=== PATIENT | female | born 1985 | race Caucasian/White ===

== ENCOUNTER 2021-03-11 20:56 | Emergency (ER) | payer OTHER ==
[~2021-03-11] VITALS: Ht 162.6 cm; Wt 83.9 kg
[2021-03-11 21:00] VITALS: BP_SYST 136
--- NOTE | 2021-03-11 21:10 | NUR ---
Patient to ER [facility].
--- NOTE | 2021-03-11 21:12 | NUR ---
Patient BIB by family from home. C/O shortness of breath and cough x 3 days. Patient had cough, fever and shortness of breath for 3 days. Patient did test COVID-19 on 03/06/21 (positive). A/O,X4, no acute distress, oxygen sat 98-99 % RA.
--- NOTE | 2021-03-11 21:16 | NUR ---
ER Dr. Aguilar at [facility] examining patient.
[2021-03-11] MEDS ORDERED: PRED20TA PO (22:11)
[2021-03-11] MEDS ORDERED: ALBU8.5H8 INH (22:12)
[2021-03-11 22:50] VITALS: BP_SYST 136
--- NOTE | 2021-03-11 22:50 | NUR ---
Patient given written and verbal discharge instructions and verbalizes understanding. ER MD discussed with patient the results and treatment provided. Patient in stable condition. ID arm band removed. Rx of Proair HFA and Prednisone given. Patient educated on pain management and to follow up with PMD. Pain Scale 0/10. Opportunity for questions provided and answered.
== END 2021-03-11 22:50 | disposition home or self-care (01) ==
LOC: SED 20:56
DX: U07.1 COVID-19 (principal); J40 Bronchitis, not specified as acute or chronic
CPT/HCPCS: 71045; 99283

== ENCOUNTER 2023-02-20 11:22 | Emergency (ER) | payer OTHER ==
[~2023-02-20] VITALS: Ht 162.6 cm; Wt 86.2 kg
[~2023-02-20 11:22] MED LIST: ALBU8.5H8 INH; OMEP20CA15 PO; ONDA-8 TL; PRED20TA PO
[2023-02-20 11:28] VITALS: BP_SYST 160; PULSE 112; RESP 18; TEMP 98.3; O2SAT 98
[2023-02-20] MEDS ORDERED: IBUP-1969 PO (12:36)
[2023-02-20] MEDS ORDERED: HYDR-3927 PO (12:36)
[2023-02-20] MEDS ORDERED: IBUPROFEN 800 MG TABLET PO ONE (12:45)
[2023-02-20 12:48] VITALS: BP_SYST 135; PULSE 84; RESP 17; TEMP 97.3; O2SAT 97
== END 2023-02-20 12:49 | disposition home or self-care (01) ==
LOC: SED 11:22
DX: S13.4XXA Sprain of ligaments of cervical spine, initial encounter (principal); S43.402A Unspecified sprain of left shoulder joint, initial encounter; Z79.899 Other long term (current) drug therapy; W01.0XXA Fall on same level from slipping, tripping and stumbling without subsequent striking against object, initial encounter; Y93.89 Activity, other specified; Y92.89 Other specified places as the place of occurrence of the external cause; Y99.8 Other external cause status
CPT/HCPCS: 72040-TC; 73030; 99284